=== PATIENT | female | born 1975 | race African-American/Black ===

== ENCOUNTER 2017-02-01 09:59 | Emergency (ER) | payer OTHER ==
[~2017-02-01] VITALS: Ht 162.6 cm; Wt 96.6 kg
[2017-02-01 10:05] VITALS: BP 148/70
[2017-02-01] MEDS ORDERED: cefTRIAXone SOD 1,000 MG VL IM ONE (10:45)
== END 2017-02-01 10:56 | disposition home or self-care (01) ==
LOC: ER 09:59
DX: J02.9 Acute pharyngitis, unspecified (principal); E07.89 Other specified disorders of thyroid
CPT/HCPCS: 96372; 99283; J0696

== ENCOUNTER 2017-04-07 12:09 | Emergency (ER) | payer OTHER ==
[~2017-04-07] VITALS: Ht 162.6 cm; Wt 94.3 kg
[2017-04-07 12:21] VITALS: BP 158/96
== END 2017-04-07 13:28 | disposition home or self-care (01) ==
LOC: ER 12:09
DX: J02.0 Streptococcal pharyngitis (principal); J32.9 Chronic sinusitis, unspecified; E07.9 Disorder of thyroid, unspecified

== ENCOUNTER 2017-07-27 10:38 | Emergency (ER) | payer OTHER ==
[~2017-07-27] VITALS: Ht 162.6 cm; Wt 98.9 kg
[2017-07-27 11:37] VITALS: BP 144/63
== END 2017-07-27 11:48 | disposition home or self-care (01) ==
LOC: ER 10:38
DX: J20.9 Acute bronchitis, unspecified (principal)
CPT/HCPCS: 81025

== ENCOUNTER 2017-10-01 20:52 | Emergency (ER) | payer OTHER ==
[~2017-10-01] VITALS: Ht 162.6 cm; Wt 81.2 kg
[2017-10-02 01:00] VITALS: BP 156/94
[2017-10-02] MEDS ORDERED: IBUPROFEN 600 MG TAB PO ONE (03:15)
== END 2017-10-02 03:30 | disposition home or self-care (01) ==
LOC: ER 20:52
DX: S90.31XA Contusion of right foot, initial encounter (principal); E07.9 Disorder of thyroid, unspecified; W22.8XXA Striking against or struck by other objects, initial encounter; Y93.89 Activity, other specified; Y92.89 Other specified places as the place of occurrence of the external cause; Y99.8 Other external cause status
CPT/HCPCS: 73620; 81025